=== PATIENT | female | born 1995 | race African-American/Black ===

== ENCOUNTER 2019-07-24 15:47 | Inpatient (IN) | payer MEDICAID, OTHER ==
[~2019-07-24] VITALS: Ht 168.9 cm; Wt 93.0 kg
[~2019-07-24 15:47] MED LIST: ALBU6.7H INH
[2019-07-24] MEDS ORDERED: ACETAMINOPHEN 325MG TABLET PO STA (16:18)
[2019-07-24] MEDS ORDERED: KETOROLAC 30MG/ML VIAL IV STA (16:18)
[2019-07-24] MEDS ORDERED: SODIUM CHLORIDE 0.9% 1,000 ML IV ONE ×3 (16:18→19:41)
[2019-07-24] MEDS ORDERED: ROCURONIUM BROMIDE 10MG/ML VIAL 5ML IV ONE (16:22)
[2019-07-24 17:23] LABS: BASOPHILS % 0.5 % (0.0-2.0); EOSINOPHILS % 1.7 % (0.0-5.0); HEMATOCRIT. 36.1 % (36.0-48.0); LYMPHOCYTES % 9.1 % (20.0-50.0); MEAN CORPUSCULAR HEMOGLOBIN 24.2 pg (28.0-32.0); MEAN CORPUSCULAR VOLUME 72.4 fL (81.0-99.0); MONOCYTES % 4.1 % (2.0-8.0); NEUTROPHILS % 84.6 % (40.0-76.0); PLATELET 289 x1000/uL (130-400); RED BLOOD CELL COUNT 4.98 mill/uL (4.2-5.4); RED CELL DISTRIBUTION WIDTH 17.7 % (11.6-14.6)
[2019-07-24 17:30] LABS: CHLORIDE 107 mEq/L (98-107)
[2019-07-24 17:37] LABS: CLARITY URINE CLEAR (CLEAR); COLOR URINE YELLOW (YELLOW); KETONES URINE NEGATIVE (NEGATIVE); LEUKOCYTE ESTERASE URINE NEGATIVE (NEGATIVE); NITRITE URINE NEGATIVE (NEGATIVE); OCCULT BLOOD URINE NEGATIVE (NEGATIVE); PH URINE 8.5 (4.5-8.0); PROTEIN URINE NEGATIVE (NEGATIVE); SPECIFIC GRAVITY URINE 1.014 (1.005-1.030)
[2019-07-24] MEDS ORDERED: ALBUTEROL (0.083%) 2.5MG/3ML NEB HHN STA (17:51)
[2019-07-24] MEDS ORDERED: ACETAMINOPHEN WITH CODEINE 300/30MG TABLET PO ONE (18:15)
[2019-07-24] MEDS ORDERED: ALBUTEROL (0.083%) 2.5MG/3ML NEB HHN ONE (18:15)
[2019-07-24] MEDS ORDERED: CLONIDINE 0.1MG TABLET PO PRN (20:45)
[2019-07-24] MEDS ORDERED: MAGNESIUM/ALUMINUM HYDROXIDE/SIMETHICONE 30ML UDC PO PRN (20:45)
[2019-07-24] MEDS ORDERED: ONDANSETRON HCL 4MG/2ML INJ IV PRN (20:45)
[2019-07-24] MEDS ORDERED: CEFTRIAXONE 1 G PREMIX 50 ML IV SCH (20:45)
[2019-07-24] MEDS ORDERED: DOCUSATE SODIUM 100MG CAPSULE PO PRN (20:45)
[2019-07-24] MEDS ORDERED: GUAIFENESIN 200MG/10ML SUGAR FREE UDC PO PRN (20:45)
[2019-07-24 22:08] VITALS: BP 131/83
[2019-07-24] MEDS: IPRATROPIUM/ALBUTEROL 0.5-3(2.5)MG/3ML NEB NEB PRN (22:56)
[2019-07-25] VITALS: BP 144/85
[2019-07-25] MEDS: ACETAMINOPHEN 325MG TABLET PO PRN ×2 (00:06→14:56)
[2019-07-25] MEDS: SODIUM CHLORIDE 0.9% 1,000 ML IV SCH ×2 (00:26→12:00)
[2019-07-25] MEDS: METHYLPREDNISOLONE SOD SUCC 40 MG/ML VIAL IV SCH ×3 (00:26→14:58)
[2019-07-25 00:48] LABS: CHLORIDE 109 mEq/L (98-107)
[2019-07-25 00:49] LABS: CREATINE KINASE 158 IU/L (26-192)
[2019-07-25 00:50] LABS: CREATINE KINASE MB FRACTION < 1.0 ng/mL (0.5-3.6)
[2019-07-25] MEDS: HYDROCODONE/ACETAMINOPHEN 5/325MG TABLET PO PRN ×2 (01:18→20:27)
[2019-07-25] MEDS ORDERED: LEVOFLOXACIN 500MG PREMIX 100 ML IV SCH (02:00)
[2019-07-25] MEDS: IPRATROPIUM/ALBUTEROL 0.5-3(2.5)MG/3ML NEB NEB PRN ×3 (02:04→12:55)
[2019-07-25 04:00] VITALS: BP 112/64
[2019-07-25 08:00] VITALS: BP 100/63
[2019-07-25] MEDS: ENOXAPARIN 30MG/0.3ML SYR SUBCUT SCH ×2 (08:11→20:27)
[2019-07-25] MEDS: IPRATROPIUM/ALBUTEROL 0.5-3(2.5)MG/3ML NEB HHN SCH ×4 (09:25→20:49)
[2019-07-25 12:00] VITALS: BP 100/62
[2019-07-25] MEDS ORDERED: POTASSIUM CHLORIDE 20MEQ TABLET SR PO NR (12:45)
[2019-07-25] MEDS ORDERED: IPRATROPIUM/ALBUTEROL 0.5-3(2.5)MG/3ML NEB HHN PRN (15:15)
[2019-07-25 16:00] VITALS: BP 110/63
[2019-07-25] MEDS ORDERED: AZITHROMYCIN 500 MG TABLET PO NR (16:00)
[2019-07-25] MEDS: MONTELUKAST SODIUM 10MG TABLET PO SCH (17:15)
[2019-07-25] MEDS: LORATADINE 10MG TABLET PO SCH (17:15)
[2019-07-25 19:23] LABS: HEMATOCRIT. 36.3 % (36.0-48.0); HEMOGLOBIN. 11.7 g/dL (12.0-16.0); MEAN CORPUSCULAR HEMOGLOBIN 23.4 pg (28.0-32.0); MEAN CORPUSCULAR VOLUME 72.3 fL (81.0-99.0); MEAN PLATELET VOLUME 10.1 fl (7.4-10.4); PLATELET 329 x1000/uL (130-400); RED BLOOD CELL COUNT 5.01 mill/uL (4.2-5.4); RED CELL DISTRIBUTION WIDTH 18.1 % (11.6-14.6)
[2019-07-25 19:35] LABS: LDL CHOLESTEROL 78 mg/dL (5-100)
[2019-07-25 19:36] LABS: CREATINE KINASE 152 IU/L (26-192); HDL CHOLESTEROL 44 mg/dL (40-59)
[2019-07-25 19:54] LABS: PLATELET ESTIMATE NORMAL
[2019-07-25] MEDS: FAMOTIDINE 20MG/2ML VIAL IV SCH (20:27)
[2019-07-25] MEDS: GUAIFENESIN 600MG ER TABLET PO SCH (20:28)
[2019-07-26] VITALS: BP 126/87
[2019-07-26] MEDS: IPRATROPIUM/ALBUTEROL 0.5-3(2.5)MG/3ML NEB HHN SCH ×6 (00:29→21:12)
[2019-07-26] MEDS: SODIUM CHLORIDE 0.9% 1,000 ML IV SCH (01:57)
[2019-07-26] MEDS: METHYLPREDNISOLONE SOD SUCC 40 MG/ML VIAL IV SCH ×3 (01:57→16:18)
[2019-07-26 04:00] VITALS: BP 119/73
[2019-07-26 08:00] VITALS: BP 112/68
[2019-07-26] MEDS: FAMOTIDINE 20MG/2ML VIAL IV SCH ×2 (09:43→20:37)
[2019-07-26] MEDS: AZITHROMYCIN 250 MG TABLET PO SCH (09:44)
[2019-07-26] MEDS: GUAIFENESIN 600MG ER TABLET PO SCH ×2 (09:44→20:37)
[2019-07-26] MEDS: ENOXAPARIN 30MG/0.3ML SYR SUBCUT SCH ×2 (09:44→20:37)
[2019-07-26] MEDS: LORATADINE 10MG TABLET PO SCH (09:44)
[2019-07-26 12:00] VITALS: BP 125/62
[2019-07-26] MEDS: HYDROCODONE/ACETAMINOPHEN 5/325MG TABLET PO PRN ×2 (13:16→20:37)
[2019-07-26 15:57] VITALS: BP 128/65
[2019-07-26] MEDS: MONTELUKAST SODIUM 10MG TABLET PO SCH (16:18)
[2019-07-26 20:00] VITALS: BP 124/50
[2019-07-26 22:29] LABS: HCG SCREEN NEGATIVE
[2019-07-27] VITALS: BP 117/61
[2019-07-27] MEDS: METHYLPREDNISOLONE SOD SUCC 40 MG/ML VIAL IV SCH ×3 (00:20→16:32)
[2019-07-27] MEDS: IPRATROPIUM/ALBUTEROL 0.5-3(2.5)MG/3ML NEB HHN SCH ×6 (01:03→21:00)
[2019-07-27 04:00] VITALS: BP 105/58
[2019-07-27 07:06] LABS: CHLORIDE 105 mEq/L (98-107)
[2019-07-27 07:08] LABS: HEMATOCRIT. 35.5 % (36.0-48.0); HEMOGLOBIN. 11.5 g/dL (12.0-16.0); LYMPHOCYTES % 7.4 % (20.0-50.0); MEAN CORPUSCULAR HEMOGLOBIN 23.5 pg (28.0-32.0); MEAN CORPUSCULAR VOLUME 72.5 fL (81.0-99.0); MEAN PLATELET VOLUME 10.1 fl (7.4-10.4); MONOCYTES % 4.4 % (2.0-8.0); NEUTROPHILS % 88.2 % (40.0-76.0); PLATELET 358 x1000/uL (130-400); RED CELL DISTRIBUTION WIDTH 17.9 % (11.6-14.6)
[2019-07-27 08:00] VITALS: BP 118/54
[2019-07-27] MEDS: AZITHROMYCIN 250 MG TABLET PO SCH (08:33)
[2019-07-27] MEDS: FAMOTIDINE 20MG/2ML VIAL IV SCH ×2 (08:33→20:59)
[2019-07-27] MEDS: GUAIFENESIN 600MG ER TABLET PO SCH ×2 (08:33→20:59)
[2019-07-27] MEDS: LORATADINE 10MG TABLET PO SCH (08:33)
[2019-07-27] MEDS: ENOXAPARIN 30MG/0.3ML SYR SUBCUT SCH ×2 (08:34→21:00)
[2019-07-27] MEDS: HYDROCODONE/ACETAMINOPHEN 5/325MG TABLET PO PRN ×3 (10:29→21:01)
[2019-07-27 12:00] VITALS: BP 112/59
[2019-07-27 16:00] VITALS: BP 110/51
[2019-07-27] MEDS: MONTELUKAST SODIUM 10MG TABLET PO SCH (16:32)
[2019-07-27 20:00] VITALS: BP 106/59
[2019-07-28] VITALS: BP 104/53
[2019-07-28] MEDS: METHYLPREDNISOLONE SOD SUCC 40 MG/ML VIAL IV SCH ×3 (00:53→18:05)
[2019-07-28] MEDS: IPRATROPIUM/ALBUTEROL 0.5-3(2.5)MG/3ML NEB HHN SCH ×6 (01:01→20:41)
[2019-07-28 04:00] VITALS: BP 108/59
[2019-07-28 07:30] VITALS: BP 115/56
[2019-07-28] MEDS: GUAIFENESIN 600MG ER TABLET PO SCH ×2 (08:17→21:59)
[2019-07-28] MEDS: AZITHROMYCIN 250 MG TABLET PO SCH (08:17)
[2019-07-28] MEDS: FAMOTIDINE 20MG/2ML VIAL IV SCH ×2 (08:17→21:59)
[2019-07-28] MEDS: ENOXAPARIN 30MG/0.3ML SYR SUBCUT SCH ×2 (08:17→21:59)
[2019-07-28] MEDS: LORATADINE 10MG TABLET PO SCH (08:17)
[2019-07-28] MEDS: HYDROCODONE/ACETAMINOPHEN 5/325MG TABLET PO PRN ×2 (11:09→17:58)
[2019-07-28 12:00] VITALS: BP 127/59
[2019-07-28] MEDS ORDERED: TERBUTALINE SULFATE 1MG/ML VIAL SUBCUT NR (12:30)
[2019-07-28 16:00] VITALS: BP 127/73
[2019-07-28] MEDS: MONTELUKAST SODIUM 10MG TABLET PO SCH (18:05)
[2019-07-29] VITALS: BP 109/58
[2019-07-29] MEDS: IPRATROPIUM/ALBUTEROL 0.5-3(2.5)MG/3ML NEB HHN SCH ×5 (00:20→16:27)
[2019-07-29] MEDS: METHYLPREDNISOLONE SOD SUCC 40 MG/ML VIAL IV SCH ×2 (00:28→08:44)
[2019-07-29] MEDS: HYDROCODONE/ACETAMINOPHEN 5/325MG TABLET PO PRN ×3 (00:29→14:55)
[2019-07-29 04:00] VITALS: BP 105/63
[2019-07-29 08:00] VITALS: BP 104/50
[2019-07-29] MEDS: LORATADINE 10MG TABLET PO SCH (08:44)
[2019-07-29] MEDS: AZITHROMYCIN 250 MG TABLET PO SCH (08:44)
[2019-07-29] MEDS: GUAIFENESIN 600MG ER TABLET PO SCH (08:44)
[2019-07-29] MEDS: FAMOTIDINE 20MG/2ML VIAL IV SCH (08:45)
[2019-07-29] MEDS: ENOXAPARIN 30MG/0.3ML SYR SUBCUT SCH (08:45)
[2019-07-29 12:00] VITALS: BP 122/71
[2019-07-29 15:50] VITALS: BP 105/68
[2019-07-29] MEDS ORDERED: METHYLPREDNISOLONE SOD SUCC 40 MG/ML VIAL IV SCH (17:00)
[2019-07-29] MEDS ORDERED: MONT10TA21 PO (17:46)
[2019-07-29] MEDS ORDERED: FAMO20TA8 MT (17:46)
[2019-07-29] MEDS ORDERED: PANT40TA4 MT (17:46)
[2019-07-29] MEDS ORDERED: GUAI118S49 MT (17:46)
[2019-07-29] MEDS ORDERED: AZIT500T5 MT (17:46)
[2019-07-29] MEDS ORDERED: P20 MT (17:46)
[2019-07-29] MEDS ORDERED: FLUT1DIS2 INH (17:46)
[2019-07-29] MEDS ORDERED: CLAR10 PO (17:46)
[2019-07-29] MEDS: MONTELUKAST SODIUM 10MG TABLET PO SCH (18:12)
[2019-07-29 19:45] VITALS: BP 110/71
== END 2019-07-29 20:30 | disposition home or self-care (01) | DRG 133 ==
LOC: ER 17:34 → 8WST 20:32 → EDBEDREQ 20:34 → EDBEDREQTM 20:34 → ENRESERV 20:58
PROVIDERS: ADMIT Internal Medicine; ATTEND Internal Medicine
DX: J96.00 Acute respiratory failure, unspecified whether with hypoxia or hypercapnia (principal); J45.901 Unspecified asthma with (acute) exacerbation; J06.9 Acute upper respiratory infection, unspecified; E87.6 Hypokalemia; E21.3 Hyperparathyroidism, unspecified; E66.9 Obesity, unspecified; Z98.891 History of uterine scar from previous surgery; Z79.899 Other long term (current) drug therapy; Z68.32 Body mass index [BMI] 32.0-32.9, adult; Z88.0 Allergy status to penicillin; Z79.51 Long term (current) use of inhaled steroids
CPT/HCPCS: 36415; 71045; 80048; 80061; 81003; 82550; 82553; 83735; 84132; 84443; 84484; 84703; 85379; 87804; 93005; 93970; 94640; 96374; 99285; J1650; J1885; J1956; J2920; J3105; J3490; J7030; J7611; J7620

== ENCOUNTER 2019-10-30 06:10 | Emergency (ER) | payer OTHER ==
[~2019-10-30] VITALS: Ht 167.6 cm; Wt 93.0 kg
[~2019-10-30 06:10] MED LIST changes: +AZIT500T5 MT; +CLAR10 PO; +FAMO20TA8 MT; +FLUT1DIS2 INH; +GUAI118S49 MT; +MONT10TA21 PO; +P20 MT; +PANT40TA4 MT
[2019-10-30 06:30] VITALS: BP 116/80
[2019-10-30] MEDS ORDERED: IBUPROFEN 600MG TABLET PO ONE (07:45)
== END 2019-10-30 11:22 | disposition home or self-care (01) ==
LOC: ER 06:10
DX: J02.9 Acute pharyngitis, unspecified (principal); J45.909 Unspecified asthma, uncomplicated; D64.9 Anemia, unspecified; Z88.0 Allergy status to penicillin
CPT/HCPCS: 87430; 99283

== ENCOUNTER 2021-10-10 02:28 | Emergency (ER) | payer MEDICAID, OTHER ==
[~2021-10-10] VITALS: Ht 172.7 cm; Wt 105.0 kg
[~2021-10-10 02:28] MED LIST changes: -ALBU6.7H INH; +ALBU6.7H15 INH; -AZIT500T5 MT; +AZIT500T8 MT; -PANT40TA4 MT; +PANT40TA51 MT
[2021-10-10 02:33] VITALS: BP 122/92
[2021-10-10] MEDS ORDERED: ACETAMINOPHEN 325MG TABLET PO STA (03:22)
[2021-10-10] MEDS ORDERED: IPRATROPIUM BROMIDE (0.02%) 0.5MG/2.5ML NEB HHN STA (03:22)
[2021-10-10] MEDS ORDERED: PREDNISONE 20MG TABLET PO STA (03:22)
[2021-10-10] MEDS ORDERED: ALBUTEROL (0.083%) 2.5MG/3ML NEB HHN SCH (03:30)
[2021-10-10] MEDS ORDERED: P50 MT (05:28)
[2021-10-10] MEDS ORDERED: ALBU05 NEB (05:28)
[2021-10-10] MEDS ORDERED: ALBU6.7H9 INH (05:28)
[2021-10-10] MEDS ORDERED: BENZ-16 MT (06:00)
[2021-10-10] MEDS ORDERED: GUAI237L83 MT (06:00)
== END 2021-10-10 06:10 | disposition home or self-care (01) ==
LOC: ER 02:38
DX: J45.901 Unspecified asthma with (acute) exacerbation (principal); J06.9 Acute upper respiratory infection, unspecified; I10 Essential (primary) hypertension; Z20.822 Contact with and (suspected) exposure to COVID-19; Z98.890 Other specified postprocedural states; Z88.0 Allergy status to penicillin
CPT/HCPCS: 71045; 81025; 87804; 93005; 94640; 99285; C9803; J7512; U0003; U0005; Z7610